=== PATIENT | female | born 1970 | race Caucasian/White ===

== ENCOUNTER 2022-07-21 12:07 | Outpatient (CLI) | payer SELFPAY ==
[2022-07-21 13:21] LABS: #Basophils 0.1 10x3/uL (0.0-0.2); #Monocytes 0.7 10x3/uL (0.0-1.1); #Neutrophils 4.9 10x3/uL (1.5-8.4); %Basophils 0.8 % (0.0-2.0); %Eosinophils 10.9 % (0.0-6.0); %Lymphocytes 26.4 % (18.0-47.0); %Monocytes 7.3 % (0.0-10.0); %Neutrophils 54.2 % (40.0-75.0); Hemoglobin 14.5 g/dL (12.0-15.5); Mean Corpuscular HGB CONC 34.3 g/dL (32.0-36.0); Mean Corpuscular Volume 99.1 fl (81.6-98.3); Mean Platelet Volume 9.1 fl (7.4-10.4); Platelet Count 292 10x3/uL (150-450); RBC Distribution Width 12.9 % (11.5-14.5); Red Blood Cell (RBC) Count 4.27 10x6/uL (3.90-5.03)
[2022-07-21 13:45] LABS: INR-International Normal Ratio 0.9; Prothrombin Time 10.1 sec (9.5-12.1)
[2022-07-21 13:50] LABS: Anion Gap 16 mmol/L (10-20); BUN (Urea Nitrogen) 9 mg/dL (9.8-20.1); Calc. Creatinine Clearance 0 mL/min (70-130); Calcium 9.4 mg/dL (7.8-10.44); Carbon Dioxide 23 mmol/L (22-29); Chloride 104 mmol/L (98-107); Estimated GFR 103; Glucose 129 mg/dL (70-105); Sodium 139 mmol/L (136-145)
== END 2022-07-21 12:08 | disposition home or self-care (01) ==
LOC: LABBT 12:07
PROVIDERS: ATTEND Orthopaedic Surgery
DX: Z01.818 Encounter for other preprocedural examination (principal); M17.11 Unilateral primary osteoarthritis, right knee
CPT/HCPCS: 80048; 85025; 85610; 87081; 93005; 93010

== ENCOUNTER 2022-07-22 07:44 | Observation (INO) | payer SELFPAY ==
[2022-07-22] MEDS ORDERED: Vancomycin 1 GM/200 ML (FROZEN) BAG ONE (07:58)
[2022-07-22] MEDS ORDERED: Sodium Chloride 0.9% 100 ML ONE ×2 (07:58→10:30)
[2022-07-22] MEDS ORDERED: Tranexamic Acid 1,000 MG/10 ML VIAL ONE (07:58)
[2022-07-22] MEDS ORDERED: fentaNYL 50 mcg/mL 1 mL Vial ONE ×6 (08:36→14:17)
[2022-07-22] MEDS ORDERED: Bupivacaine PF 0.5% 30 ML VIAL ONE (08:36)
[2022-07-22] MEDS ORDERED: Midazolam HCl 2 mg/2 ml Vial ONE (08:36)
[2022-07-22] MEDS ORDERED: fentaNYL PF 100 MCG/2 ML SYRINGE ONE ×2 (08:50→11:04)
[2022-07-22] MEDS ORDERED: fentaNYL 50 mcg/mL 1 mL Vial SLOW IVP PRN (09:02)
[2022-07-22] MEDS ORDERED: Ropivacaine 0.2% 550 ML 550 ML NERVE BLCK SCH (09:15)
[2022-07-22] MEDS ORDERED: Promethazine HCl 25 MG/ML VIAL IM PRN ×3 (09:15→12:47)
[2022-07-22] MEDS ORDERED: Zolpidem Tartrate 5 MG TAB PO PRN (09:15)
[2022-07-22] MEDS ORDERED: Ondansetron PF 4 MG/2 ML Vial IVP PRN ×2 (09:15→12:47)
[2022-07-22] MEDS ORDERED: HYDROcodone/Acetaminophen 10/325 mg Tablet PO PRN (09:15)
[2022-07-22] MEDS ORDERED: traMADol HCl 50 MG TAB PO PRN ×2 (09:15)
[2022-07-22] MEDS ORDERED: CEFAZOLIN 2 GM VIAL ONE (10:30)
[2022-07-22] MEDS ORDERED: Ondansetron PF 4 MG/2 ML Vial ONE (10:38)
[2022-07-22] MEDS ORDERED: Bupivacaine HCl 0.5%/Epinephrine 1:200,000/PF 30 ml Vial ONE (10:38)
[2022-07-22] MEDS ORDERED: Phenylephrine 10 MG/ML VIAL ONE (10:38)
[2022-07-22] MEDS ORDERED: PROPOFOL 200 MG/20 ML VIAL ONE (10:38)
[2022-07-22] MEDS ORDERED: Dexamethasone 20 MG/5 ML VIAL ONE (10:38)
[2022-07-22] MEDS ORDERED: Ondansetron HCl/PF 4 MG/2 ML Vial IVP PRN (10:56)
[2022-07-22] MEDS ORDERED: Bupivacaine/Epinephrine 0.25% 30 ML VIAL ONE (11:04)
[2022-07-22] MEDS ORDERED: Acetaminophen 325 MG TAB PO PRN (12:47)
[2022-07-22] MEDS ORDERED: diphenhydrAMINE 25 MG CAP PO PRN (12:47)
[2022-07-22] MEDS ORDERED: Labetalol HCl 100 MG/20 ML VIAL ONE (13:15)
[2022-07-22 15:45] VITALS: BMI 27.3
[2022-07-22] MEDS: Ketorolac Tromethamine 30 MG/ML VIAL IVP SCH ×2 (15:58→17:27)
[2022-07-22] MEDS: HYDROcodone/Acetaminophen 10/325 mg Tablet PO PRN ×2 (16:24→21:43)
[2022-07-22] MEDS: Dextrose 5 %-0.45 % NaCl 1,000 ML IV SCH ×2 (16:30→21:45)
[2022-07-22] MEDS: CEFAZOLIN 2 GM in Sodium Chloride 0.9% 100 ML IVPB SCH (17:27)
[2022-07-22] MEDS: Aspirin 81 mg Enteric Coated Tablet PO SCH (21:42)
[2022-07-23] MEDS: Ketorolac Tromethamine 30 MG/ML VIAL IVP SCH ×3 (00:17→11:58)
[2022-07-23] MEDS: CEFAZOLIN 2 GM in Sodium Chloride 0.9% 100 ML IVPB SCH (02:45)
[2022-07-23 06:04] LABS: Hemoglobin 12.1 g/dL (12.0-16.0); Mean Corpuscular HGB CONC 33.2 g/dL (32.0-36.0); Mean Corpuscular Hemoglobin 34.8 pg (27.0-31.0); Mean Platelet Volume 6.8 fL (7.4-10.4); Platelet Count 282 10x3/uL (130-400); RBC Distribution Width 12.1 % (11.5-14.5); Red Blood Cell (RBC) Count 3.49 mill/uL (4.20-5.40); White Blood Cell (WBC) Count 12.8 10x3/uL (4.8-10.8)
[2022-07-23] MEDS: Aspirin 81 mg Enteric Coated Tablet PO SCH (08:29)
[2022-07-23] MEDS: Dextrose 5 %-0.45 % NaCl 1,000 ML IV SCH (08:30)
[2022-07-23] MEDS: HYDROcodone/Acetaminophen 10/325 mg Tablet PO PRN ×2 (08:43→13:01)
[2022-07-23] MEDS ORDERED: Senokot S 8.6-50 MG TAB PO SCH (09:00)
[2022-07-23] MEDS ORDERED: Ferrous Gluconate 324 MG TAB PO SCH (09:00)
[2022-07-23] MEDS ORDERED: Multivitamin W/ Minerals 1 TAB PO SCH (09:00)
[2022-07-23 16:22] VITALS: BP 155/90; TEMP 97.8
== END 2022-07-23 14:58 | disposition home or self-care (01) ==
LOC: SDC 07:44 → SURG B 12:47
PROVIDERS: ADMIT Orthopaedic Surgery; ATTEND Orthopaedic Surgery
PROC: 0SRC0J9 Replacement of Right Knee Joint with Synthetic Substitute, Cemented, Open Approach (ICD-10-PCS; principal; 2022-07-22)
DX: M17.11 Unilateral primary osteoarthritis, right knee (principal); I10 Essential (primary) hypertension; G89.29 Other chronic pain; F17.210 Nicotine dependence, cigarettes, uncomplicated; Z79.1 Long term (current) use of non-steroidal anti-inflammatories (NSAID); Z79.899 Other long term (current) drug therapy
CPT/HCPCS: 36415; 85027; 96374; 96375; 96376; A4306; C1713; C1776; G0378; J1100; J1885; J2250; J2370; J2405; J2704; J2795; J3010; J3370-JW; J3490; J7042; S0020

== ENCOUNTER 2022-08-16 16:07 | Emergency (ER) | payer SELFPAY ==
[2022-08-16 18:19] LABS: #Eosinphils 0.5 thou/uL (0.0-0.7); #Lymphocytes 2.1 thou/uL (1.20-3.40); #Monocytes 0.7 thou/uL (0.11-0.59); #Neutrophils 5.4 thou/uL (1.40-6.50); %Basophils 0.4 % (0.0-1.0); %Eosinophils 6.2 % (0.0-10.0); %Lymphocytes 24.3 % (21.0-51.0); %Monocytes 7.9 % (0.0-10.0); %Neutrophils 61.2 % (42.0-75.0); Hemoglobin 12.1 g/dL (12.0-16.0); Mean Corpuscular HGB CONC 35.9 g/dL (32.0-36.0); Mean Corpuscular Hemoglobin 36.4 pg (27.0-31.0); Mean Platelet Volume 6.4 fL (7.4-10.4); Platelet Count 288 10x3/uL (130-400); RBC Distribution Width 12.9 % (11.5-14.5); Red Blood Cell (RBC) Count 3.32 mill/uL (4.20-5.40); White Blood Cell (WBC) Count 8.8 10x3/uL (4.8-10.8)
[2022-08-16 18:30] LABS: INR-International Normal Ratio 0.9; PTT 28.2 sec (22.9-36.1)
[2022-08-16 18:42] LABS: ALT (SGPT) 21 U/L (8-55); AST (SGOT) 36 U/L (5-34); Albumin 3.9 g/dL (3.5-5.0); Alkaline Phosphatase 92 U/L (40-110); Anion Gap 18 mmol/L (10-20); BUN (Urea Nitrogen) 11 mg/dL (9.8-20.1); Bilirubin, Total 0.6 mg/dL (0.2-1.2); Calc. Creatinine Clearance 0 mL/min (70-130); Calcium 8.9 mg/dL (7.8-10.44); Carbon Dioxide 20 mmol/L (22-29); Chloride 104 mmol/L (98-107); Estimated GFR 104; Globulin 2.3 g/dL (2.4-3.5); Glucose 110 mg/dL (70-105); Potassium 3.6 mmol/L (3.5-5.1); Protein, Total 6.2 g/dL (6.0-8.3); Sodium 138 mmol/L (136-145)
[2022-08-16] MEDS ORDERED: Ondansetron PF 4 MG/2 ML Vial ONE (19:04)
[2022-08-16] MEDS ORDERED: Morphine 4 MG/ML VIAL ONE (19:04)
== END 2022-08-16 19:34 | disposition home or self-care (01) ==
LOC: ERS 16:07
DX: S80.01XA Contusion of right knee, initial encounter (principal); I10 Essential (primary) hypertension; F17.210 Nicotine dependence, cigarettes, uncomplicated; W18.30XA Fall on same level, unspecified, initial encounter
CPT/HCPCS: 80053; 85025; 85610; 85730; 96374; 96375; J2270; J2405

== ENCOUNTER 2022-08-18 13:29 | Outpatient (CLI) | payer SELFPAY | END 2022-08-18 13:30 | disposition home or self-care (01) | LOC: CT 13:29 | PROVIDERS: ATTEND Orthopaedic Surgery | DX: Z47.1 Aftercare following joint replacement surgery (principal); Z96.651 Presence of right artificial knee joint ==

== ENCOUNTER 2022-08-22 10:10 | Observation (INO) | payer SELFPAY ==
[2022-08-21 14:27] VITALS: BMI 28.3
[2022-08-22] MEDS ORDERED: Vancomycin 1 GM/200 ML (FROZEN) BAG ONE (11:00)
[2022-08-22] MEDS ORDERED: Tranexamic Acid 1,000 MG/10 ML VIAL ONE (11:00)
[2022-08-22] MEDS ORDERED: Sodium Chloride 0.9% 100 ML ONE ×2 (11:00→12:05)
[2022-08-22] MEDS ORDERED: fentaNYL 50 mcg/mL 1 mL Vial ONE (11:17)
[2022-08-22] MEDS ORDERED: Midazolam HCl 2 mg/2 ml Vial ONE (11:17)
[2022-08-22] MEDS ORDERED: Bupivacaine PF 0.5% 30 ML VIAL ONE (11:17)
[2022-08-22] MEDS ORDERED: CEFAZOLIN 2 GM VIAL ONE (12:05)
[2022-08-22] MEDS ORDERED: HYDROmorphone 0.5 MG/0.5 ML SYRINGE ONE ×4 (12:32→15:07)
[2022-08-22] MEDS ORDERED: fentaNYL PF 100 MCG/2 ML SYRINGE ONE (12:32)
[2022-08-22] MEDS ORDERED: Ondansetron PF 4 MG/2 ML Vial ONE ×2 (12:37→13:36)
[2022-08-22] MEDS ORDERED: Lidocaine 1% PF 5 ML VIAL ONE (12:37)
[2022-08-22] MEDS ORDERED: Dexamethasone 20 MG/5 ML VIAL ONE (12:37)
[2022-08-22] MEDS ORDERED: Bupivacaine HCl 0.5%/Epinephrine 1:200,000/PF 30 ml Vial ONE (12:37)
[2022-08-22] MEDS ORDERED: PROPOFOL 200 MG/20 ML VIAL ONE (12:37)
[2022-08-22] MEDS ORDERED: Ketorolac Tromethamine 30 MG/ML VIAL ONE (12:37)
[2022-08-22] MEDS ORDERED: Promethazine HCl 25 MG/ML VIAL IM PRN (14:41)
[2022-08-22] MEDS ORDERED: Zolpidem Tartrate 5 MG TAB PO PRN (14:41)
[2022-08-22] MEDS ORDERED: Ondansetron PF 4 MG/2 ML Vial IVP PRN (14:41)
[2022-08-22] MEDS ORDERED: HYDROcodone/Acetaminophen 10/325 mg Tablet PO PRN (14:41)
[2022-08-22] MEDS ORDERED: fentaNYL 50 mcg/mL 1 mL Vial SLOW IVP PRN ×2 (14:41→14:50)
[2022-08-22] MEDS ORDERED: Acetaminophen 325 MG TAB PO PRN (14:41)
[2022-08-22] MEDS ORDERED: diphenhydrAMINE 25 MG CAP PO PRN (14:41)
[2022-08-22] MEDS ORDERED: traMADol HCl 50 MG TAB PO PRN ×2 (14:41)
[2022-08-22] MEDS ORDERED: hydrALAZINE 20 MG/ML VIAL ONE (15:16)
[2022-08-22] MEDS: HYDROcodone/Acetaminophen 10/325 mg Tablet PO PRN ×2 (17:28→21:30)
[2022-08-22] MEDS: Sodium Chloride 0.9% 1,000 ML IV SCH (17:29)
[2022-08-22] MEDS: Aspirin 81 mg Enteric Coated Tablet PO SCH (21:21)
[2022-08-22] MEDS: CEFAZOLIN 2 GM in Sodium Chloride 0.9% 100 ML IVPB SCH (21:21)
[2022-08-22] MEDS: Ferrous Gluconate 324 MG TAB PO SCH (21:21)
[2022-08-22] MEDS: Ketorolac Tromethamine 30 MG/ML VIAL IVP SCH (21:22)
[2022-08-22] MEDS: Senokot S 8.6-50 MG TAB PO SCH (21:22)
[2022-08-23] MEDS: Sodium Chloride 0.9% 1,000 ML IV SCH ×2 (01:25→10:57)
[2022-08-23] MEDS: HYDROcodone/Acetaminophen 10/325 mg Tablet PO PRN ×2 (05:07→09:12)
[2022-08-23] MEDS: Ketorolac Tromethamine 30 MG/ML VIAL IVP SCH (05:08)
[2022-08-23] MEDS: CEFAZOLIN 2 GM in Sodium Chloride 0.9% 100 ML IVPB SCH (05:09)
[2022-08-23 07:44] VITALS: TEMP 97.6
[2022-08-23] MEDS ORDERED: Aspirin Chewable 81 MG TAB PO SCH (09:00)
[2022-08-23] MEDS ORDERED: Multivitamin W/ Minerals 1 TAB PO SCH (09:00)
[2022-08-23] MEDS: Aspirin 81 mg Enteric Coated Tablet PO SCH (09:15)
[2022-08-23] MEDS: Senokot S 8.6-50 MG TAB PO SCH (09:15)
[2022-08-23] MEDS: Ferrous Gluconate 324 MG TAB PO SCH (09:15)
[2022-08-23 11:30] VITALS: BP 186/88
[2022-08-23] MEDS ORDERED: Ketorolac Tromethamine 10 MG TAB PO SCH (14:00)
[2022-08-23] MEDS ORDERED: Cyclobenzaprine 10 MG TAB PO SCH (14:00)
== END 2022-08-23 12:55 | disposition home or self-care (01) ==
LOC: SDC 10:10 → SURG B 14:41
PROVIDERS: ADMIT Orthopaedic Surgery; ATTEND Orthopaedic Surgery
PROC: 0LQL0ZZ Repair Right Upper Leg Tendon, Open Approach (ICD-10-PCS; principal; 2022-08-22)
DX: S76.111A Strain of right quadriceps muscle, fascia and tendon, initial encounter (principal); I10 Essential (primary) hypertension; M81.0 Age-related osteoporosis without current pathological fracture; F17.210 Nicotine dependence, cigarettes, uncomplicated; J30.2 Other seasonal allergic rhinitis; Z79.899 Other long term (current) drug therapy; Z96.651 Presence of right artificial knee joint; W17.2XXA Fall into hole, initial encounter; X50.1XXA Overexertion from prolonged static or awkward postures, initial encounter
CPT/HCPCS: 96374; 96375; 96376; G0378; J0360; J1100; J1170; J1885; J2250; J2405; J2704; J3010; J3370-JW; J3490; J7050; L1830; S0020

== ENCOUNTER 2022-09-02 17:23 | Emergency (ER) | payer OTHER, SELFPAY ==
[2022-09-02] MEDS ORDERED: HYDROcodone/Acetaminophen 5/325 mg Tablet ONE (18:01)
== END 2022-09-02 18:50 | disposition home or self-care (01) ==
LOC: ERS 17:23
DX: M25.561 Pain in right knee (principal); I10 Essential (primary) hypertension; F17.210 Nicotine dependence, cigarettes, uncomplicated; V49.9XXA Car occupant (driver) (passenger) injured in unspecified traffic accident, initial encounter